=== PATIENT | female | born 1975 | race Caucasian/White ===

== ENCOUNTER → 2016-08-03 | Day surgery (SDC) | payer OTHER | END | disposition home or self-care (01) | LOC: SDC 06:48 | DX: N20.0 Calculus of kidney (principal); Z86.69 Personal history of other diseases of the nervous system and sense organs; Z90.710 Acquired absence of both cervix and uterus; Z79.899 Other long term (current) drug therapy | CPT/HCPCS: C1894; C2617; J2704; Q9967 ==